=== PATIENT | female | born 1960 | race Caucasian/White ===

== ENCOUNTER 2018-08-03 11:17 | Outpatient (CLI) | payer OTHER ==
[2018-08-03 18:48] LABS: FREE T3 2.63 pg/mL (2.5-3.9); THYROID STIMULATING HORMONE 0.74 uIU/mL (0.34-5.60)
[2018-08-03 18:50] LABS: FREE T4 (FREE THYROXINE) 0.81 ng/dL (0.58-1.64)
[2018-08-04 07:11] LABS: PROGESTERONE 0.6 ng/mL
== END 2018-08-03 11:18 | disposition home or self-care (01) ==
LOC: LAB.F 11:17
PROVIDERS: ATTEND Naturopath
DX: Z13.29 Encounter for screening for other suspected endocrine disorder (principal); L63.9 Alopecia areata, unspecified; N95.9 Unspecified menopausal and perimenopausal disorder; R53.83 Other fatigue
CPT/HCPCS: 36415; 82533; 82627; 82670; 82672; 84144; 84403; 84439; 84443; 84480; 84481; 84482; 86376; 86800

== ENCOUNTER 2022-12-10 07:00 | Outpatient (CLI) | payer BC, OTHER | END 2022-12-10 23:59 | disposition home or self-care (01) | LOC: LAB.S 07:00 | PROVIDERS: ATTEND Physician Assistant | DX: K12.2 Cellulitis and abscess of mouth (principal) | CPT/HCPCS: 87070 ==